=== PATIENT | female | born 1975 ===

== ENCOUNTER 2021-04-09 13:47 | Emergency (ER) | payer MEDICAID ==
[2021-04-09] MEDS ORDERED: KETOROLAC 30 MG/1 ML INJ IM ONE (16:52)
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
[2021-04-09 17:28] VITALS: BP 190/94
== END 2021-04-09 17:28 | disposition home or self-care (01) ==
LOC: ED 13:47
DX: M25.512 Pain in left shoulder (principal); M54.9 Dorsalgia, unspecified; Z79.899 Other long term (current) drug therapy; V89.2XXA Person injured in unspecified motor-vehicle accident, traffic, initial encounter; Y93.89 Activity, other specified; Y92.89 Other specified places as the place of occurrence of the external cause; Y99.8 Other external cause status
CPT/HCPCS: 96372; 99282; J1885